=== PATIENT | male | born 1970 | race Caucasian/White ===

== ENCOUNTER 2023-01-06 13:06 | Inpatient (IN) | payer OTHER ==
[2023-01-06 14:19] VITALS: BMI 27.3
[2023-01-06] MEDS ORDERED: IBUPROFEN 400 MG TABLET (FP) PO PRN (15:07)
[2023-01-06] MEDS ORDERED: NALOXONE HCL (KLOXXADO) 8 MG SPRAY NS PRN (15:07)
[2023-01-06] MEDS ORDERED: NALOXONE HCL 0.4 MG/ML VIAL IM PRN (15:07)
[2023-01-06] MEDS ORDERED: IBUPROFEN 600 MG TABLET (FP) PO PRN (15:07)
[2023-01-06] MEDS ORDERED: BENZOCAINE/MENTHOL (CHLORASEPTIC ) LOZENGE MM PRN (15:07)
[2023-01-06] MEDS ORDERED: NICOTINE 10 MG CARTRIDGE (INHALER) IH PRN (15:07)
[2023-01-06] MEDS ORDERED: MAG HYDROX/AL HYDROX/SIMETH 30 ML UNIT-DOSE CUP PO PRN (15:07)
[2023-01-06] MEDS ORDERED: ACETAMINOPHEN 325 MG TABLET (FP) PO PRN (15:07)
[2023-01-06] MEDS ORDERED: POLYETHYLENE GLYCOL (HEALTHYLAX) 3350 17 GM PACKET PO PRN (15:07)
[2023-01-06] MEDS ORDERED: guaiFENesin 600 MG TABLET.ER (FP) PO PRN (15:07)
[2023-01-06] MEDS ORDERED: MAGNESIUM HYDROX 2400MG/30ML ORAL SUSPENSION 30 ML CUP PO PRN (15:07)
[2023-01-06] MEDS ORDERED: BENZONATATE 200 MG CAPSULE PO PRN (15:07)
[2023-01-06] MEDS ORDERED: DICYCLOMINE HCL 10 MG CAPSULE PO PRN (15:07)
[2023-01-06 17:51] LABS: ALBUMIN 3.5 g/dl (3.4-5.0); CALCIUM 9.2 mg/dL (8.5-10.1)
[2023-01-06 17:52] LABS: BLOOD UREA NITROGEN 15.8 mg/dL (7-18)
[2023-01-06 17:55] LABS: CREATININE 0.9 mg/dL (0.55-1.3)
[2023-01-06 17:56] LABS: BILIRUBIN,TOTAL 0.6 mg/dL (0.2-1); TOT PROT 6.9 g/dl (6.4-8.2)
[2023-01-06] MEDS: THIAMINE HCL 100 MG TABLET (FP) PO SCH (22:31)
[2023-01-06] MEDS: MELATONIN 5 MG TABLETS PO SCH (22:31)
[2023-01-06] MEDS: hydrOXYzine PAMOATE 25 MG CAPSULE (FP) PO PRN (22:32)
[2023-01-06] MEDS ORDERED: chlordiazePOXIDE HCL 25 MG CAPSULE PO SCH (23:00)
[2023-01-06] MEDS ORDERED: chlordiazePOXIDE HCL 25 MG CAPSULE PO PRN (23:30)
[2023-01-07] MEDS: chlordiazePOXIDE HCL 25 MG CAPSULE PO SCH ×5 (00:37→22:40)
[2023-01-07] MEDS: PRENATAL VITAMINS W/ FOLIC ACID TABLET (FP) PO SCH (10:27)
[2023-01-07] MEDS: METHOCARBAMOL 500 MG TABLET PO PRN (10:27)
[2023-01-07] MEDS: hydrOXYzine PAMOATE 25 MG CAPSULE (FP) PO PRN (10:27)
[2023-01-07] MEDS ORDERED: methaDONE HCL 10 MG TABLET PO ONE ×2 (11:57→12:04)
[2023-01-07] MEDS: ONDANSETRON *ODT* 4 MG TABLET SL PRN (12:37)
[2023-01-07] MEDS: MELATONIN 5 MG TABLETS PO SCH (22:40)
[2023-01-07] MEDS: THIAMINE HCL 100 MG TABLET (FP) PO SCH (22:40)
[2023-01-08] MEDS: chlordiazePOXIDE HCL 25 MG CAPSULE PO SCH ×4 (05:59→22:50)
[2023-01-08] MEDS: PRENATAL VITAMINS W/ FOLIC ACID TABLET (FP) PO SCH (10:03)
[2023-01-08] MEDS: hydrOXYzine PAMOATE 25 MG CAPSULE (FP) PO PRN (10:03)
[2023-01-08] MEDS: METHOCARBAMOL 500 MG TABLET PO PRN (10:03)
[2023-01-08] MEDS ORDERED: methaDONE HCL 10 MG TABLET PO ONE (11:10)
[2023-01-08] MEDS: ONDANSETRON *ODT* 4 MG TABLET SL PRN (18:08)
[2023-01-08] MEDS: LOPERAMIDE HCL 2 MG CAPSULE PO PRN (18:09)
[2023-01-08] MEDS: MELATONIN 5 MG TABLETS PO SCH (22:50)
[2023-01-08] MEDS: THIAMINE HCL 100 MG TABLET (FP) PO SCH (22:51)
[2023-01-09] MEDS ORDERED: chlordiazePOXIDE HCL 10 MG CAPSULE PO PRN
[2023-01-09] MEDS: chlordiazePOXIDE HCL 10 MG CAPSULE PO SCH ×4 (05:50→22:18)
[2023-01-09] MEDS: BISMUTH SUBSALICYLATE 524 MG/30 ML PO PRN (05:58)
[2023-01-09] MEDS: ONDANSETRON *ODT* 4 MG TABLET SL PRN (05:59)
[2023-01-09] MEDS: METHOCARBAMOL 500 MG TABLET PO PRN (10:37)
[2023-01-09] MEDS: hydrOXYzine PAMOATE 25 MG CAPSULE (FP) PO PRN (10:37)
[2023-01-09] MEDS: PRENATAL VITAMINS W/ FOLIC ACID TABLET (FP) PO SCH (10:38)
[2023-01-09] MEDS: THIAMINE HCL 100 MG TABLET (FP) PO SCH (22:18)
[2023-01-09] MEDS: MELATONIN 5 MG TABLETS PO SCH (22:19)
[2023-01-10] MEDS: BISMUTH SUBSALICYLATE 524 MG/30 ML PO PRN ×2 (05:43→20:07)
[2023-01-10] MEDS: chlordiazePOXIDE HCL 10 MG CAPSULE PO SCH ×2 (06:00→17:26)
[2023-01-10] MEDS: LOPERAMIDE HCL 2 MG CAPSULE PO PRN ×3 (08:49→21:59)
[2023-01-10] MEDS: METHOCARBAMOL 500 MG TABLET PO PRN (10:47)
[2023-01-10] MEDS: hydrOXYzine PAMOATE 25 MG CAPSULE (FP) PO PRN (10:47)
[2023-01-10] MEDS: PRENATAL VITAMINS W/ FOLIC ACID TABLET (FP) PO SCH (10:47)
[2023-01-10 21:55] VITALS: RESP 18
[2023-01-10] MEDS: MELATONIN 5 MG TABLETS PO SCH (21:59)
[2023-01-10] MEDS: THIAMINE HCL 100 MG TABLET (FP) PO SCH (21:59)
[2023-01-11] MEDS ORDERED: chlordiazePOXIDE HCL 10 MG CAPSULE PO ONE (05:00)
[2023-01-11] MEDS: LOPERAMIDE HCL 2 MG CAPSULE PO PRN ×2 (05:38→11:46)
[2023-01-11 06:02] VITALS: TEMP 97.3
[2023-01-11 09:23] VITALS: BP 130/78; PULSE 74
[2023-01-11] MEDS: PRENATAL VITAMINS W/ FOLIC ACID TABLET (FP) PO SCH (10:07)
== END 2023-01-11 12:13 | disposition other institution (70) | DRG 773 ==
LOC: YASAS 13:06 → Y6N 16:02 → UNDOADMIN 16:02
PROVIDERS: ADMIT Allergy & Immunology; ATTEND Surgery
PROC: HZ2ZZZZ Detoxification Services for Substance Abuse Treatment (ICD-10-PCS; principal; 2023-01-06)
DX: F10.230 Alcohol dependence with withdrawal, uncomplicated (principal); F11.20 Opioid dependence, uncomplicated; F14.20 Cocaine dependence, uncomplicated; F13.20 Sedative, hypnotic or anxiolytic dependence, uncomplicated; F17.210 Nicotine dependence, cigarettes, uncomplicated; G25.0 Essential tremor; R26.89 Other abnormalities of gait and mobility; Z86.19 Personal history of other infectious and parasitic diseases; Z88.0 Allergy status to penicillin
CPT/HCPCS: 36415; 80053; 86780; 87811; 93005; 93010; C9803-CS; Q0162; U0003; U0005

== ENCOUNTER 2023-01-11 12:03 | Inpatient (IN) | payer OTHER ==
[2023-01-11] MEDS ORDERED: BENZOCAINE/MENTHOL (CHLORASEPTIC ) LOZENGE MM PRN (16:00)
[2023-01-11] MEDS ORDERED: guaiFENesin 600 MG TABLET.ER (FP) PO PRN (16:00)
[2023-01-11] MEDS ORDERED: NALOXONE HCL (KLOXXADO) 8 MG SPRAY NS PRN (16:00)
[2023-01-11] MEDS ORDERED: POLYETHYLENE GLYCOL (HEALTHYLAX) 3350 17 GM PACKET PO PRN (16:00)
[2023-01-11] MEDS ORDERED: NALOXONE HCL 0.4 MG/ML VIAL IVPUSH PRN (16:00)
[2023-01-11] MEDS ORDERED: BENZONATATE 200 MG CAPSULE PO PRN (16:00)
[2023-01-11] MEDS ORDERED: MAG HYDROX/AL HYDROX/SIMETH 30 ML UNIT-DOSE CUP PO PRN (16:00)
[2023-01-11] MEDS: LOPERAMIDE HCL 2 MG CAPSULE PO PRN (17:03)
[2023-01-11] MEDS: THIAMINE HCL 100 MG TABLET (FP) PO SCH (21:09)
[2023-01-11] MEDS: hydrOXYzine PAMOATE 25 MG CAPSULE (FP) PO PRN (21:10)
[2023-01-11] MEDS: BISMUTH SUBSALICYLATE 524 MG/30 ML PO PRN (21:11)
[2023-01-11] MEDS ORDERED: MELATONIN 5 MG TABLETS PO SCH (22:00)
[2023-01-12] MEDS: BISMUTH SUBSALICYLATE 524 MG/30 ML PO PRN ×2 (06:51→18:22)
[2023-01-12] MEDS ORDERED: GABAPENTIN 100 MG CAPSULE PO STA (09:28)
[2023-01-12] MEDS: PRENATAL VITAMINS W/ FOLIC ACID TABLET (FP) PO SCH (09:35)
[2023-01-12] MEDS: BACLOFEN 10 MG TABLET (FP) PO PRN ×2 (09:36→21:21)
[2023-01-12] MEDS ORDERED: methaDONE HCL 40 MG DISPERSABLE TABLET PO SCH (10:00)
[2023-01-12] MEDS: LOPERAMIDE HCL 2 MG CAPSULE PO PRN (11:51)
[2023-01-12] MEDS: GABAPENTIN 100 MG CAPSULE PO SCH ×2 (14:01→21:21)
[2023-01-12] MEDS: THIAMINE HCL 100 MG TABLET (FP) PO SCH (21:21)
[2023-01-12] MEDS: hydrOXYzine PAMOATE 25 MG CAPSULE (FP) PO PRN (21:21)
[2023-01-12] MEDS: SUVOREXANT 10 MG TABLET PO PRN (21:23)
[2023-01-13] MEDS: BACLOFEN 10 MG TABLET (FP) PO PRN ×2 (06:23→21:10)
[2023-01-13] MEDS: GABAPENTIN 100 MG CAPSULE PO SCH ×3 (06:23→21:10)
[2023-01-13] MEDS: PRENATAL VITAMINS W/ FOLIC ACID TABLET (FP) PO SCH (10:09)
[2023-01-13] MEDS ORDERED: PRENATAL VITAMINS W/ FOLIC ACID TABLET (FP) PO PRN (10:14)
[2023-01-13] MEDS: THIAMINE HCL 100 MG TABLET (FP) PO SCH (21:10)
[2023-01-13] MEDS: hydrOXYzine PAMOATE 25 MG CAPSULE (FP) PO PRN (21:10)
[2023-01-13] MEDS: SUVOREXANT 10 MG TABLET PO PRN (21:10)
[2023-01-13] MEDS ORDERED: INSULIN (NOVOLOG) ASPART 100 UNITS/ML 10ML VIAL ONE (22:41)
[2023-01-14] MEDS: BACLOFEN 10 MG TABLET (FP) PO PRN ×3 (06:16→21:15)
[2023-01-14] MEDS: GABAPENTIN 100 MG CAPSULE PO SCH ×3 (06:16→21:15)
[2023-01-14] MEDS: IBUPROFEN 600 MG TABLET (FP) PO PRN ×2 (09:38→21:15)
[2023-01-14] MEDS: THIAMINE HCL 100 MG TABLET (FP) PO SCH (21:15)
[2023-01-14] MEDS: hydrOXYzine PAMOATE 25 MG CAPSULE (FP) PO PRN (21:15)
[2023-01-14] MEDS: SUVOREXANT 10 MG TABLET PO PRN (21:17)
[2023-01-15] MEDS: GABAPENTIN 100 MG CAPSULE PO SCH ×3 (06:28→21:12)
[2023-01-15] MEDS: BACLOFEN 10 MG TABLET (FP) PO PRN ×3 (06:30→21:12)
[2023-01-15] MEDS ORDERED: BENZOCAINE 20 % GEL TUBE MM PRN (13:19)
[2023-01-15] MEDS: CHLORHEXIDINE GLUCONATE 0.12% 15ML CUP MM SCH ×2 (14:30→21:10)
[2023-01-15] MEDS: THIAMINE HCL 100 MG TABLET (FP) PO SCH (21:11)
[2023-01-15] MEDS: hydrOXYzine PAMOATE 25 MG CAPSULE (FP) PO PRN (21:12)
[2023-01-15] MEDS: IBUPROFEN 600 MG TABLET (FP) PO PRN (21:13)
[2023-01-15] MEDS: SUVOREXANT 10 MG TABLET PO PRN (21:13)
[2023-01-16] MEDS: GABAPENTIN 100 MG CAPSULE PO SCH ×3 (05:59→21:09)
[2023-01-16] MEDS: BACLOFEN 10 MG TABLET (FP) PO PRN ×3 (06:00→21:09)
[2023-01-16] MEDS: CHLORHEXIDINE GLUCONATE 0.12% 15ML CUP MM SCH ×2 (09:31→21:10)
[2023-01-16] MEDS: MAGNESIUM HYDROX 2400MG/30ML ORAL SUSPENSION 30 ML CUP PO PRN (09:31)
[2023-01-16] MEDS: THIAMINE HCL 100 MG TABLET (FP) PO SCH (21:08)
[2023-01-16] MEDS: hydrOXYzine PAMOATE 25 MG CAPSULE (FP) PO PRN (21:09)
[2023-01-16] MEDS: IBUPROFEN 600 MG TABLET (FP) PO PRN (21:09)
[2023-01-16] MEDS: SUVOREXANT 10 MG TABLET PO PRN (21:10)
[2023-01-17] MEDS: GABAPENTIN 100 MG CAPSULE PO SCH ×3 (06:09→21:06)
[2023-01-17] MEDS: BACLOFEN 10 MG TABLET (FP) PO PRN ×2 (06:17→13:39)
[2023-01-17] MEDS: IBUPROFEN 600 MG TABLET (FP) PO PRN ×2 (07:11→21:05)
[2023-01-17] MEDS: MAGNESIUM HYDROX 2400MG/30ML ORAL SUSPENSION 30 ML CUP PO PRN (10:10)
[2023-01-17] MEDS: CHLORHEXIDINE GLUCONATE 0.12% 15ML CUP MM SCH ×2 (10:12→21:06)
[2023-01-17] MEDS: THIAMINE HCL 100 MG TABLET (FP) PO SCH (21:05)
[2023-01-17] MEDS: SUVOREXANT 10 MG TABLET PO PRN (21:07)
[2023-01-18] MEDS: GABAPENTIN 100 MG CAPSULE PO SCH ×2 (06:10→14:07)
[2023-01-18] MEDS: CHLORHEXIDINE GLUCONATE 0.12% 15ML CUP MM SCH ×2 (09:36→21:16)
[2023-01-18] MEDS: MAGNESIUM HYDROX 2400MG/30ML ORAL SUSPENSION 30 ML CUP PO PRN (09:38)
[2023-01-18] MEDS: DOCUSATE SODIUM 100 MG CAPSULE (FP) PO PRN ×2 (13:35→21:16)
[2023-01-18] MEDS: IBUPROFEN 400 MG TABLET (FP) PO PRN (13:35)
[2023-01-18] MEDS: BACLOFEN 10 MG TABLET (FP) PO PRN ×2 (13:35→21:16)
[2023-01-18] MEDS: GABAPENTIN 300 MG CAPSULE PO SCH (21:16)
[2023-01-18] MEDS: hydrOXYzine PAMOATE 25 MG CAPSULE (FP) PO PRN (21:16)
[2023-01-18] MEDS: SUVOREXANT 10 MG TABLET PO PRN (21:16)
[2023-01-18] MEDS: THIAMINE HCL 100 MG TABLET (FP) PO SCH (21:16)
[2023-01-19] MEDS: BACLOFEN 10 MG TABLET (FP) PO PRN ×2 (06:05→21:19)
[2023-01-19] MEDS: GABAPENTIN 300 MG CAPSULE PO SCH ×3 (06:05→21:19)
[2023-01-19] MEDS: DOCUSATE SODIUM 100 MG CAPSULE (FP) PO PRN ×2 (06:09→21:19)
[2023-01-19] MEDS: CHLORHEXIDINE GLUCONATE 0.12% 15ML CUP MM SCH ×2 (09:56→21:18)
[2023-01-19] MEDS: IBUPROFEN 600 MG TABLET (FP) PO PRN (13:29)
[2023-01-19] MEDS: THIAMINE HCL 100 MG TABLET (FP) PO SCH (21:19)
[2023-01-19] MEDS: SUVOREXANT 10 MG TABLET PO PRN (21:19)
[2023-01-20] MEDS: BACLOFEN 10 MG TABLET (FP) PO PRN ×2 (06:02→21:02)
[2023-01-20] MEDS: GABAPENTIN 300 MG CAPSULE PO SCH ×3 (06:02→21:02)
[2023-01-20] MEDS: DOCUSATE SODIUM 100 MG CAPSULE (FP) PO PRN (06:02)
[2023-01-20] MEDS: CHLORHEXIDINE GLUCONATE 0.12% 15ML CUP MM SCH ×2 (09:32→21:02)
[2023-01-20] MEDS: MAGNESIUM HYDROX 2400MG/30ML ORAL SUSPENSION 30 ML CUP PO PRN (17:29)
[2023-01-20] MEDS: SUVOREXANT 10 MG TABLET PO PRN (21:01)
[2023-01-20] MEDS: THIAMINE HCL 100 MG TABLET (FP) PO SCH (21:02)
[2023-01-21] MEDS: GABAPENTIN 300 MG CAPSULE PO SCH ×3 (06:08→21:04)
[2023-01-21] MEDS: BACLOFEN 10 MG TABLET (FP) PO PRN ×2 (06:08→21:04)
[2023-01-21] MEDS: DOCUSATE SODIUM 100 MG CAPSULE (FP) PO PRN ×2 (09:33→21:04)
[2023-01-21] MEDS: CHLORHEXIDINE GLUCONATE 0.12% 15ML CUP MM SCH ×2 (09:33→21:05)
[2023-01-21] MEDS: BACITRACIN 0.9 GM PACKET TP SCH ×2 (14:00→21:04)
[2023-01-21] MEDS: hydrOXYzine PAMOATE 25 MG CAPSULE (FP) PO PRN ×2 (16:10→21:04)
[2023-01-21] MEDS: SUVOREXANT 10 MG TABLET PO PRN (21:03)
[2023-01-21] MEDS: THIAMINE HCL 100 MG TABLET (FP) PO SCH (21:04)
[2023-01-21] MEDS: IBUPROFEN 600 MG TABLET (FP) PO PRN (23:47)
[2023-01-22] MEDS: DOCUSATE SODIUM 100 MG CAPSULE (FP) PO PRN ×2 (06:16→21:02)
[2023-01-22] MEDS: GABAPENTIN 300 MG CAPSULE PO SCH ×3 (06:16→21:02)
[2023-01-22] MEDS: IBUPROFEN 400 MG TABLET (FP) PO PRN (06:16)
[2023-01-22] MEDS: BACLOFEN 10 MG TABLET (FP) PO PRN ×2 (06:16→21:02)
[2023-01-22] MEDS: BACITRACIN 0.9 GM PACKET TP SCH ×2 (09:29→21:02)
[2023-01-22] MEDS: CHLORHEXIDINE GLUCONATE 0.12% 15ML CUP MM SCH ×2 (09:29→21:03)
[2023-01-22] MEDS: ACETAMINOPHEN 325 MG TABLET (FP) PO PRN ×2 (09:30→17:03)
[2023-01-22] MEDS: hydrOXYzine PAMOATE 25 MG CAPSULE (FP) PO PRN ×2 (13:11→21:03)
[2023-01-22] MEDS: IBUPROFEN 600 MG TABLET (FP) PO PRN ×2 (13:11→19:17)
[2023-01-22] MEDS: SUVOREXANT 10 MG TABLET PO PRN (21:02)
[2023-01-22] MEDS: THIAMINE HCL 100 MG TABLET (FP) PO SCH (21:02)
[2023-01-23] MEDS: ACETAMINOPHEN 325 MG TABLET (FP) PO PRN ×4 (00:09→21:20)
[2023-01-23] MEDS: IBUPROFEN 600 MG TABLET (FP) PO PRN ×2 (06:19→18:50)
[2023-01-23] MEDS: BACLOFEN 10 MG TABLET (FP) PO PRN ×2 (06:19→21:20)
[2023-01-23] MEDS: GABAPENTIN 300 MG CAPSULE PO SCH ×3 (06:19→21:20)
[2023-01-23] MEDS: DOCUSATE SODIUM 100 MG CAPSULE (FP) PO PRN ×2 (06:20→21:19)
[2023-01-23] MEDS: BACITRACIN 0.9 GM PACKET TP SCH ×2 (09:49→21:20)
[2023-01-23] MEDS: CHLORHEXIDINE GLUCONATE 0.12% 15ML CUP MM SCH ×2 (09:49→21:19)
[2023-01-23] MEDS: IBUPROFEN 400 MG TABLET (FP) PO PRN (12:28)
[2023-01-23] MEDS: CLINDAMYCIN HCL 150 MG CAPSULE (FP) PO SCH ×2 (13:37→21:20)
[2023-01-23] MEDS: SUVOREXANT 10 MG TABLET PO PRN (21:18)
[2023-01-23] MEDS: THIAMINE HCL 100 MG TABLET (FP) PO SCH (21:20)
[2023-01-24] MEDS: DOCUSATE SODIUM 100 MG CAPSULE (FP) PO PRN ×2 (06:02→21:39)
[2023-01-24] MEDS: BACLOFEN 10 MG TABLET (FP) PO PRN ×2 (06:02→21:39)
[2023-01-24] MEDS: GABAPENTIN 300 MG CAPSULE PO SCH ×3 (06:02→21:38)
[2023-01-24] MEDS: CLINDAMYCIN HCL 150 MG CAPSULE (FP) PO SCH ×3 (06:02→21:39)
[2023-01-24] MEDS: IBUPROFEN 600 MG TABLET (FP) PO PRN ×3 (06:04→21:39)
[2023-01-24] MEDS: BACITRACIN 0.9 GM PACKET TP SCH ×2 (09:54→21:38)
[2023-01-24] MEDS: ACETAMINOPHEN 325 MG TABLET (FP) PO PRN (09:54)
[2023-01-24] MEDS: CHLORHEXIDINE GLUCONATE 0.12% 15ML CUP MM SCH ×2 (09:55→21:53)
[2023-01-24] MEDS: THIAMINE HCL 100 MG TABLET (FP) PO SCH (21:39)
[2023-01-24] MEDS: SUVOREXANT 10 MG TABLET PO PRN (21:42)
[2023-01-25] MEDS: CLINDAMYCIN HCL 150 MG CAPSULE (FP) PO SCH ×3 (06:03→21:17)
[2023-01-25] MEDS: BACLOFEN 10 MG TABLET (FP) PO PRN ×2 (06:03→21:16)
[2023-01-25] MEDS: DOCUSATE SODIUM 100 MG CAPSULE (FP) PO PRN ×2 (06:03→21:16)
[2023-01-25] MEDS: GABAPENTIN 300 MG CAPSULE PO SCH ×3 (06:04→21:16)
[2023-01-25] MEDS: IBUPROFEN 600 MG TABLET (FP) PO PRN ×3 (06:05→21:17)
[2023-01-25] MEDS: BACITRACIN 0.9 GM PACKET TP SCH ×2 (09:59→21:16)
[2023-01-25] MEDS: ACETAMINOPHEN 325 MG TABLET (FP) PO PRN (09:59)
[2023-01-25] MEDS: CHLORHEXIDINE GLUCONATE 0.12% 15ML CUP MM SCH ×2 (09:59→21:19)
[2023-01-25] MEDS: MAGNESIUM HYDROX 2400MG/30ML ORAL SUSPENSION 30 ML CUP PO PRN (10:02)
[2023-01-25] MEDS: hydrOXYzine PAMOATE 25 MG CAPSULE (FP) PO PRN (21:18)
[2023-01-25] MEDS: THIAMINE HCL 100 MG TABLET (FP) PO SCH (21:18)
[2023-01-25] MEDS: SUVOREXANT 10 MG TABLET PO PRN (21:19)
[2023-01-26] MEDS: IBUPROFEN 600 MG TABLET (FP) PO PRN ×3 (06:10→21:15)
[2023-01-26] MEDS: GABAPENTIN 300 MG CAPSULE PO SCH ×3 (06:10→21:12)
[2023-01-26] MEDS: CLINDAMYCIN HCL 150 MG CAPSULE (FP) PO SCH ×3 (06:10→21:12)
[2023-01-26] MEDS: BACLOFEN 10 MG TABLET (FP) PO PRN ×2 (06:10→21:15)
[2023-01-26] MEDS: DOCUSATE SODIUM 100 MG CAPSULE (FP) PO PRN ×2 (06:10→21:15)
[2023-01-26] MEDS: CHLORHEXIDINE GLUCONATE 0.12% 15ML CUP MM SCH ×2 (09:57→21:13)
[2023-01-26] MEDS: BACITRACIN 0.9 GM PACKET TP SCH ×2 (09:57→21:12)
[2023-01-26] MEDS: MAGNESIUM HYDROX 2400MG/30ML ORAL SUSPENSION 30 ML CUP PO PRN (09:58)
[2023-01-26] MEDS: THIAMINE HCL 100 MG TABLET (FP) PO SCH (21:12)
[2023-01-26] MEDS: SUVOREXANT 10 MG TABLET PO PRN (21:14)
[2023-01-27] MEDS: IBUPROFEN 600 MG TABLET (FP) PO PRN ×3 (06:01→21:05)
[2023-01-27] MEDS: BACLOFEN 10 MG TABLET (FP) PO PRN (06:01)
[2023-01-27] MEDS: CLINDAMYCIN HCL 150 MG CAPSULE (FP) PO SCH ×3 (06:01→21:04)
[2023-01-27] MEDS: DOCUSATE SODIUM 100 MG CAPSULE (FP) PO PRN (06:01)
[2023-01-27] MEDS: GABAPENTIN 300 MG CAPSULE PO SCH ×3 (06:01→21:04)
[2023-01-27] MEDS ORDERED: LACTULOSE 20 GM/30 ML UDC (FOR ORAL USE ONLY) PO PRN (08:07)
[2023-01-27] MEDS: CHLORHEXIDINE GLUCONATE 0.12% 15ML CUP MM SCH ×2 (09:31→21:05)
[2023-01-27] MEDS: BACITRACIN 0.9 GM PACKET TP SCH ×2 (09:31→21:06)
[2023-01-27] MEDS: THIAMINE HCL 100 MG TABLET (FP) PO SCH (21:05)
[2023-01-27] MEDS: SUVOREXANT 10 MG TABLET PO PRN (21:06)
[2023-01-28] MEDS: CLINDAMYCIN HCL 150 MG CAPSULE (FP) PO SCH ×3 (06:06→21:00)
[2023-01-28] MEDS: GABAPENTIN 300 MG CAPSULE PO SCH ×3 (06:07→21:01)
[2023-01-28] MEDS: IBUPROFEN 600 MG TABLET (FP) PO PRN ×2 (06:07→13:15)
[2023-01-28] MEDS: BACLOFEN 10 MG TABLET (FP) PO PRN ×2 (06:10→21:01)
[2023-01-28] MEDS: BACITRACIN 0.9 GM PACKET TP SCH ×2 (09:46→21:00)
[2023-01-28] MEDS: CHLORHEXIDINE GLUCONATE 0.12% 15ML CUP MM SCH ×2 (09:46→21:01)
[2023-01-28] MEDS: THIAMINE HCL 100 MG TABLET (FP) PO SCH (21:01)
[2023-01-28] MEDS: SUVOREXANT 10 MG TABLET PO PRN (21:01)
[2023-01-28] MEDS: IBUPROFEN 400 MG TABLET (FP) PO PRN (21:02)
[2023-01-29] MEDS: GABAPENTIN 300 MG CAPSULE PO SCH ×3 (06:01→21:09)
[2023-01-29] MEDS: CLINDAMYCIN HCL 150 MG CAPSULE (FP) PO SCH ×3 (06:01→21:09)
[2023-01-29] MEDS: IBUPROFEN 600 MG TABLET (FP) PO PRN ×3 (06:02→21:08)
[2023-01-29] MEDS: BACLOFEN 10 MG TABLET (FP) PO PRN ×2 (06:04→21:10)
[2023-01-29] MEDS: BACITRACIN 0.9 GM PACKET TP SCH ×2 (09:34→21:08)
[2023-01-29] MEDS: CHLORHEXIDINE GLUCONATE 0.12% 15ML CUP MM SCH ×2 (09:35→21:09)
[2023-01-29] MEDS: ACETAMINOPHEN 325 MG TABLET (FP) PO PRN (11:51)
[2023-01-29] MEDS: SUVOREXANT 10 MG TABLET PO PRN (21:07)
[2023-01-29] MEDS: THIAMINE HCL 100 MG TABLET (FP) PO SCH (21:09)
[2023-01-30] MEDS: CLINDAMYCIN HCL 150 MG CAPSULE (FP) PO SCH (05:58)
[2023-01-30] MEDS: IBUPROFEN 600 MG TABLET (FP) PO PRN ×3 (05:58→21:03)
[2023-01-30] MEDS: GABAPENTIN 300 MG CAPSULE PO SCH ×3 (05:59→21:02)
[2023-01-30] MEDS: BACLOFEN 10 MG TABLET (FP) PO PRN ×2 (06:02→21:02)
[2023-01-30] MEDS: CHLORHEXIDINE GLUCONATE 0.12% 15ML CUP MM SCH ×2 (09:42→21:03)
[2023-01-30] MEDS: BACITRACIN 0.9 GM PACKET TP SCH ×2 (09:42→21:02)
[2023-01-30] MEDS: DOCUSATE SODIUM 100 MG CAPSULE (FP) PO PRN (09:43)
[2023-01-30] MEDS: SUVOREXANT 10 MG TABLET PO PRN (21:01)
[2023-01-30] MEDS: THIAMINE HCL 100 MG TABLET (FP) PO SCH (21:02)
[2023-01-31] MEDS: IBUPROFEN 600 MG TABLET (FP) PO PRN ×3 (06:10→21:05)
[2023-01-31] MEDS: BACLOFEN 10 MG TABLET (FP) PO PRN ×2 (06:10→21:04)
[2023-01-31] MEDS: GABAPENTIN 300 MG CAPSULE PO SCH ×3 (06:10→21:04)
[2023-01-31] MEDS: BACITRACIN 0.9 GM PACKET TP SCH ×2 (10:07→21:03)
[2023-01-31] MEDS: CHLORHEXIDINE GLUCONATE 0.12% 15ML CUP MM SCH ×2 (10:07→22:34)
[2023-01-31 16:35] LABS: BASO % 0.5 % (0-2.0); EOS % 3.5 % (0-4.5); HEMATOCRIT 34.5 % (35.4-49); HEMOGLOBIN 11.6 GM/dL (11.7-16.9); LYMPH % 16.2 % (8-40); MCH 29.7 pg (25.7-33.7); MCHC 33.5 g/dl (32.0-35.9); MEAN CELL VOLUME 88.7 fl (80-96); MEAN PLT VOLUME 6.8 fl (7.5-11.1); MONO % 5.6 % (3.8-10.2); NEUT % 74.2 % (42.8-82.8); PLATELET COUNT 410 10^3/uL (134-434); RDW 14.3 % (11.9-15.9); WHITE BLOOD COUNT 7.1 K/mm3 (4.0-10.0)
[2023-01-31 16:43] LABS: INR 1.08 (0.83-1.09); PROTHROMBIN TIME (PATIENT) 12.5 SEC (9.7-13.0)
[2023-01-31] MEDS: ACETAMINOPHEN 325 MG TABLET (FP) PO PRN (18:19)
[2023-01-31] MEDS: SUVOREXANT 10 MG TABLET PO PRN (21:04)
[2023-01-31] MEDS: hydrOXYzine PAMOATE 25 MG CAPSULE (FP) PO PRN (21:04)
[2023-01-31] MEDS: DOCUSATE SODIUM 100 MG CAPSULE (FP) PO PRN (21:04)
[2023-01-31] MEDS: THIAMINE HCL 100 MG TABLET (FP) PO SCH (21:04)
[2023-02-01] MEDS: IBUPROFEN 600 MG TABLET (FP) PO PRN (06:03)
[2023-02-01] MEDS: GABAPENTIN 300 MG CAPSULE PO SCH ×3 (06:03→21:04)
[2023-02-01] MEDS: BACLOFEN 10 MG TABLET (FP) PO PRN (06:03)
[2023-02-01] MEDS: BACITRACIN 0.9 GM PACKET TP SCH ×2 (09:48→21:03)
[2023-02-01] MEDS: CHLORHEXIDINE GLUCONATE 0.12% 15ML CUP MM SCH ×2 (09:48→21:04)
[2023-02-01] MEDS: CHOLECALCIFEROL (VIT D3) 1,000 UNIT (25 MCG) TABLET PO SCH (13:22)
[2023-02-01] MEDS: hydrOXYzine PAMOATE 25 MG CAPSULE (FP) PO PRN (21:04)
[2023-02-01] MEDS: THIAMINE HCL 100 MG TABLET (FP) PO SCH (21:04)
[2023-02-01] MEDS: IBUPROFEN 400 MG TABLET (FP) PO PRN (21:05)
[2023-02-01] MEDS: SUVOREXANT 10 MG TABLET PO PRN (21:06)
[2023-02-02] MEDS: IBUPROFEN 400 MG TABLET (FP) PO PRN (06:03)
[2023-02-02] MEDS: GABAPENTIN 300 MG CAPSULE PO SCH ×3 (06:03→21:14)
[2023-02-02] MEDS: BACITRACIN 0.9 GM PACKET TP SCH ×2 (10:01→21:14)
[2023-02-02] MEDS: CHOLECALCIFEROL (VIT D3) 1,000 UNIT (25 MCG) TABLET PO SCH (10:01)
[2023-02-02] MEDS: CHLORHEXIDINE GLUCONATE 0.12% 15ML CUP MM SCH ×2 (10:01→21:14)
[2023-02-02] MEDS: IBUPROFEN 600 MG TABLET (FP) PO PRN ×2 (13:19→21:13)
[2023-02-02] MEDS: SUVOREXANT 10 MG TABLET PO PRN (21:12)
[2023-02-02] MEDS: hydrOXYzine PAMOATE 25 MG CAPSULE (FP) PO PRN (21:13)
[2023-02-02] MEDS: BACLOFEN 10 MG TABLET (FP) PO PRN (21:13)
[2023-02-02] MEDS: THIAMINE HCL 100 MG TABLET (FP) PO SCH (21:14)
[2023-02-03] MEDS: IBUPROFEN 400 MG TABLET (FP) PO PRN (06:04)
[2023-02-03] MEDS: GABAPENTIN 300 MG CAPSULE PO SCH ×3 (06:04→21:08)
[2023-02-03] MEDS: BACLOFEN 10 MG TABLET (FP) PO PRN ×2 (06:06→21:08)
[2023-02-03] MEDS: CHLORHEXIDINE GLUCONATE 0.12% 15ML CUP MM SCH ×2 (10:07→21:43)
[2023-02-03] MEDS: hydrOXYzine PAMOATE 25 MG CAPSULE (FP) PO PRN ×2 (10:07→21:10)
[2023-02-03] MEDS: BACITRACIN 0.9 GM PACKET TP SCH ×2 (10:07→21:08)
[2023-02-03] MEDS: CHOLECALCIFEROL (VIT D3) 1,000 UNIT (25 MCG) TABLET PO SCH (10:07)
[2023-02-03] MEDS: IBUPROFEN 600 MG TABLET (FP) PO PRN ×2 (13:34→21:09)
[2023-02-03] MEDS: SUVOREXANT 10 MG TABLET PO PRN (21:08)
[2023-02-03] MEDS: THIAMINE HCL 100 MG TABLET (FP) PO SCH (21:08)
[2023-02-04] MEDS: GABAPENTIN 300 MG CAPSULE PO SCH ×3 (05:51→21:12)
[2023-02-04] MEDS: BACLOFEN 10 MG TABLET (FP) PO PRN (05:52)
[2023-02-04] MEDS: IBUPROFEN 600 MG TABLET (FP) PO PRN ×2 (05:52→21:11)
[2023-02-04] MEDS: BACITRACIN 0.9 GM PACKET TP SCH ×2 (09:45→21:12)
[2023-02-04] MEDS: CHLORHEXIDINE GLUCONATE 0.12% 15ML CUP MM SCH ×2 (09:45→21:13)
[2023-02-04] MEDS: CHOLECALCIFEROL (VIT D3) 1,000 UNIT (25 MCG) TABLET PO SCH (09:45)
[2023-02-04] MEDS: hydrOXYzine PAMOATE 25 MG CAPSULE (FP) PO PRN ×2 (09:46→21:11)
[2023-02-04] MEDS: THIAMINE HCL 100 MG TABLET (FP) PO SCH (21:10)
[2023-02-04] MEDS: SUVOREXANT 10 MG TABLET PO PRN (21:13)
[2023-02-05] MEDS: hydrOXYzine PAMOATE 25 MG CAPSULE (FP) PO PRN ×2 (06:02→21:22)
[2023-02-05] MEDS: GABAPENTIN 300 MG CAPSULE PO SCH ×3 (06:02→21:23)
[2023-02-05] MEDS: IBUPROFEN 600 MG TABLET (FP) PO PRN (06:03)
[2023-02-05] MEDS: CHOLECALCIFEROL (VIT D3) 1,000 UNIT (25 MCG) TABLET PO SCH (10:07)
[2023-02-05] MEDS: CHLORHEXIDINE GLUCONATE 0.12% 15ML CUP MM SCH ×2 (10:07→21:23)
[2023-02-05] MEDS: BACITRACIN 0.9 GM PACKET TP SCH ×2 (10:07→21:21)
[2023-02-05] MEDS: IBUPROFEN 400 MG TABLET (FP) PO PRN (21:22)
[2023-02-05] MEDS: THIAMINE HCL 100 MG TABLET (FP) PO SCH (21:23)
[2023-02-06] MEDS: IBUPROFEN 600 MG TABLET (FP) PO PRN ×2 (06:07→21:03)
[2023-02-06] MEDS: GABAPENTIN 300 MG CAPSULE PO SCH ×3 (06:07→21:03)
[2023-02-06] MEDS: BACLOFEN 10 MG TABLET (FP) PO PRN (06:07)
[2023-02-06] MEDS: hydrOXYzine PAMOATE 25 MG CAPSULE (FP) PO PRN ×2 (06:07→21:03)
[2023-02-06] MEDS: BACITRACIN 0.9 GM PACKET TP SCH ×2 (09:19→21:03)
[2023-02-06] MEDS: CHLORHEXIDINE GLUCONATE 0.12% 15ML CUP MM SCH ×2 (09:19→21:30)
[2023-02-06] MEDS: CHOLECALCIFEROL (VIT D3) 1,000 UNIT (25 MCG) TABLET PO SCH (09:19)
[2023-02-06] MEDS: THIAMINE HCL 100 MG TABLET (FP) PO SCH (21:03)
[2023-02-07] MEDS: IBUPROFEN 400 MG TABLET (FP) PO PRN (06:02)
[2023-02-07] MEDS: hydrOXYzine PAMOATE 25 MG CAPSULE (FP) PO PRN ×3 (06:02→21:07)
[2023-02-07] MEDS: GABAPENTIN 300 MG CAPSULE PO SCH ×3 (06:02→21:07)
[2023-02-07] MEDS: BACLOFEN 10 MG TABLET (FP) PO PRN (06:05)
[2023-02-07] MEDS: CHLORHEXIDINE GLUCONATE 0.12% 15ML CUP MM SCH ×2 (09:37→21:08)
[2023-02-07] MEDS: CHOLECALCIFEROL (VIT D3) 1,000 UNIT (25 MCG) TABLET PO SCH (09:37)
[2023-02-07] MEDS: BACITRACIN 0.9 GM PACKET TP SCH ×2 (09:37→21:07)
[2023-02-07] MEDS: IBUPROFEN 600 MG TABLET (FP) PO PRN (13:57)
[2023-02-07] MEDS: THIAMINE HCL 100 MG TABLET (FP) PO SCH (21:08)
[2023-02-07] MEDS: MELATONIN 5 MG TABLETS PO SCH (21:08)
[2023-02-08] MEDS: GABAPENTIN 300 MG CAPSULE PO SCH ×3 (05:53→21:05)
[2023-02-08] MEDS: hydrOXYzine PAMOATE 25 MG CAPSULE (FP) PO PRN ×2 (05:53→21:05)
[2023-02-08] MEDS: IBUPROFEN 400 MG TABLET (FP) PO PRN (05:54)
[2023-02-08] MEDS: BACLOFEN 10 MG TABLET (FP) PO PRN (05:57)
[2023-02-08 06:24] VITALS: RESP 16
[2023-02-08] MEDS: BACITRACIN 0.9 GM PACKET TP SCH ×2 (09:47→21:05)
[2023-02-08] MEDS: CHOLECALCIFEROL (VIT D3) 1,000 UNIT (25 MCG) TABLET PO SCH (09:47)
[2023-02-08] MEDS: CHLORHEXIDINE GLUCONATE 0.12% 15ML CUP MM SCH ×2 (09:47→21:05)
[2023-02-08] MEDS: ACETAMINOPHEN 325 MG TABLET (FP) PO PRN (09:48)
[2023-02-08] MEDS: MELATONIN 5 MG TABLETS PO SCH (21:04)
[2023-02-08] MEDS: THIAMINE HCL 100 MG TABLET (FP) PO SCH (21:04)
[2023-02-08] MEDS: DOCUSATE SODIUM 100 MG CAPSULE (FP) PO PRN (21:05)
[2023-02-09] MEDS: GABAPENTIN 300 MG CAPSULE PO SCH (06:06)
[2023-02-09] MEDS: IBUPROFEN 400 MG TABLET (FP) PO PRN (06:07)
[2023-02-09] MEDS: BACLOFEN 10 MG TABLET (FP) PO PRN (06:09)
[2023-02-09 06:38] VITALS: BP 121/63; PULSE 70; TEMP 97.9
[2023-02-09] MEDS: CHOLECALCIFEROL (VIT D3) 1,000 UNIT (25 MCG) TABLET PO SCH (09:13)
[2023-02-09] MEDS: CHLORHEXIDINE GLUCONATE 0.12% 15ML CUP MM SCH (09:14)
[2023-02-09] MEDS: BACITRACIN 0.9 GM PACKET TP SCH (09:14)
== END 2023-02-09 09:22 | disposition home or self-care (01) | DRG 772 ==
LOC: YASAS 12:03 → Y3E 12:04
PROVIDERS: ADMIT Allergy & Immunology; ATTEND Psychiatry & Neurology Pain Medicine
PROC: HZ42ZZZ Group Counseling for Substance Abuse Treatment, Cognitive-Behavioral (ICD-10-PCS; principal; 2023-01-11)
DX: F10.20 Alcohol dependence, uncomplicated (principal); F14.20 Cocaine dependence, uncomplicated; F13.20 Sedative, hypnotic or anxiolytic dependence, uncomplicated; F11.20 Opioid dependence, uncomplicated; F19.280 Other psychoactive substance dependence with psychoactive substance-induced anxiety disorder; K08.89 Other specified disorders of teeth and supporting structures; K05.10 Chronic gingivitis, plaque induced; K02.9 Dental caries, unspecified; K59.09 Other constipation; R26.89 Other abnormalities of gait and mobility; R58 Hemorrhage, not elsewhere classified; Z87.891 Personal history of nicotine dependence; Z88.0 Allergy status to penicillin
CPT/HCPCS: 36415; 71046-TC-FY; 82306; 84597; 85025; 85610; 86803; 87522; 93005; 93010; J0475